=== PATIENT | male | born 1975 ===

== ENCOUNTER 2017-12-15 11:52 | Emergency (ER) | payer OTHER ==
--- NOTE | 2017-12-15 12:24 | C.PDOC ---
History Of Present Illness 42 y/o male presents to the ER complaining of pain to the bottom of bilateral feet which has been present for the past several days. Patient states that the pain is worse in the morning when he strikes the ground after waking up from bed. Patient denies having any trauma, weakness, numbness, rash, and fever. Time Seen by Provider: 12/15/17 12:07 Chief Complaint (Nursing): Lower Extremity Problem/Injury History Per: Patient History/Exam Limitations: no limitations Onset/Duration Of Symptoms: Days Current Symptoms Are (Timing): Still Present Severity: Moderate Past Medical History Reviewed: Historical Data, Nursing Documentation, Vital Signs Vital Signs: Last Vital Signs Temp 98.1 F 12/15/17 14:08 Pulse 63 12/15/17 14:08 Resp 18 12/15/17 14:08 BP 115/80 12/15/17 14:08 Pulse Ox 99 12/15/17 14:08 - Medical History PMH: No Chronic Diseases Surgical History: No Surg Hx Family History: States: No Known Family Hx - Social History Hx Alcohol Use: No Hx Substance Use: No - Immunization History Hx Tetanus Toxoid Vaccination: No Hx Influenza Vaccination: No Hx Pneumococcal Vaccination: No Review Of Systems Except As Marked, All Systems Reviewed And Found Negative. Constitutional: Negative for: Fever, Chills Musculoskeletal: Positive for: Foot Pain Skin: Negative for: Rash Neurological: Negative for: Weakness, Numbness Physical Exam - Physical Exam Appears: Non-toxic, No Acute Distress Skin: Normal Color, Warm Head: Atraumatic, Normacephalic Eye(s): bilateral: Normal Inspection Nose: Normal Oral Mucosa: Moist Neck: Supple Chest: Symmetrical Extremity: Normal ROM, No Tenderness (bilateral feet), Capillary Refill, No Swelling (bilateral feet), Other (no erythema to bilateral feet) Pulses: Left Dorsalis Pedis: Normal, Right Dorsalis Pedis: Normal Neurological/Psych: Oriented x3, Normal Speech ED Course And Treatment O2 Sat by Pulse Oximetry: 98 (RA) Pulse Ox Interpretation: Normal Medical Decision Making Medical Decision Making: Progress: Physical Exam is consistent with plantar fasciitis. There is no evidence of gout , infection, or trauma. Patient will be given Toradol IM and Prednisone PO. On re-exam, the patient reports improvement of symptoms. Abdomen is soft, non- tender. Patient is tolerating PO well. Lungs are CTA, heart is RRR. Ambulatory in the ED with steady gait. Follow up with the medical doctor within 1-2 days. Return if worsened. 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 Return if worsened. Prescriptions: Naproxen [Naprosyn] 500 mg PO BID #20 tab predniSONE [Prednisone] 10 mg PO BID #10 tab Instructions: Heel Pain (Caused by Plantar Fasciitis), Plantar Fasciitis Exercises Forms: [employer] [facility] (Sinhala), Work Excuse - Clinical Impression Clinical Impression: Plantar fasciitis, bilateral - PA / SAFETY OFFICER / Resident Statement MD/DO has reviewed & agrees with the documentation as recorded. - Scribe Statement The provider has reviewed the documentation as recorded by the Scribe Cristina Sow Provider Attestation All medical record entries made by the Scribe were at my direction and personally dictated by me. I have reviewed the chart and agree that the record accurately reflects my personal performance of the history, physical exam, medical decision making, and the department course for this patient. I have also personally directed, reviewed, and agree with the discharge instructions and disposition.
[2017-12-15 14:09] VITALS: BP 115/80; PULSE 63; RESP 18; TEMP 98.1
[2017-12-17 20:35] VITALS: O2SAT 98
== END 2017-12-15 14:10 | disposition home or self-care (01) ==
LOC: C.ER 11:52
DX: M72.2 Plantar fascial fibromatosis (principal)
CPT/HCPCS: 96372; 99284; J1885